=== PATIENT | female | born 1990 | race Native Hawaiian/Other Pacific Islander ===

== ENCOUNTER → 2019-05-30 14:30 | Outpatient (CLI) | payer SELFPAY | PROVIDERS: Visit Provider Physician Assistant | DX: N89.8 Other specified noninflammatory disorders of vagina (principal); O26.899 Other specified pregnancy related conditions, unspecified trimester | CPT/HCPCS: 87077; 87086; 87186 ==

== ENCOUNTER → 2019-06-08 12:39 | Outpatient (CLI) | payer BC, SELFPAY ==
[2019-06-08 13:10] LABS: Add Manual Diff / Slide Review NO; Appearance Urine UA CLEAR; Basophils Absolute Auto 0 /uL (0-100); Basophils Percent Auto 0.4 % (0-2); Bilirubin Urine UA NEGATIVE (NEGATIVE); Color Urine UA YELLOW; Eosinophils Absolute Auto 100 /uL (0-450); Eosinophils Percent Auto 1.1 % (2-4); Glucose Urine UA NEGATIVE (Negative); Hematocrit 33.1 % (36-46); Hemoglobin 11.3 g/dL (12.0-16.0); Ketones Urine UA NEGATIVE (NEGATIVE); Leukocyte Esterase Urine UA TRACE (NEGATIVE); Lymphocytes Absolute Auto 2600 /uL (1100-4500); Lymphocytes Percent Auto 22.9 % (25-40); Mean Corpuscular HGB Conc 34.1 % (30-36); Mean Corpuscular Hemoglobin 30.9 PG (26-34); Mean Corpuscular Volume 90.6 fL (80-100); Monocytes Absolute Auto 600 /uL (0-900); Monocytes Percent Auto 5.6 % (3-14); Neutrophils Absolute Auto 8000 /uL (1500-7000); Nitrite Urine UA NEGATIVE (Negative); Occult Blood Urine UA NEGATIVE (Negative); Platelet Count 266 X10^3/uL (150-400); Protein Urine UA NEGATIVE (Negative); Red Blood Cell Count 3.65 X10^6/uL (4.0-5.2); Red Cell Distribution Width 14.4 % (11.6-14.8); Specific Gravity Urine UA <=1.005 (1.000-1.035); Urobilinogen Urine UA 0.2 E.U./dL (0.2); White Blood Cell Count 11.5 X10^3/uL (4.5-11.0)
[2019-06-08 13:11] LABS: Bacteria Urine None Seen; RBC Urine None Seen (0-5/HPF)
[2019-06-08 13:16] LABS: Culture Indicated Urine Cult Not Indicated; WBC Urine 0-1/HPF (0-5/HPF)
[2019-06-08 13:21] LABS: Hemoglobin A1C% w Est Avg Glu 4.6 % (4.0-6.0)
[2019-06-08 13:26] LABS: Glucose 81 mg/dL (70-100)
[2019-06-08 16:50] LABS: Hepatitis B Surface Antigen NEGATIVE s/c (NEGATIVE); Rubella Antibody IgG 70.2 IU/mL (>15)
[2019-06-08 17:07] LABS: HIV 1 & 2 Ab/Ag 4th Gen Combo NEGATIVE (NEGATIVE); Hep C Virus Ab w/Reflex Quant NEGATIVE s/c (NEGATIVE)
[2019-06-10 22:26] LABS: RPR Screen Nonreactive (Nonreactive)
[2019-06-15 15:20] LABS: AFP, Serum 63.2 ng/mL; Calc Gestational Age 16.9; Cigarette Smoker NO; Donated Egg NOT GIVEN; Donor Egg Age NOT GIVEN; Estriol, Free 1.81 ng/mL; Inhibin A, Dimeric 206 pg/mL; Maternal Weight 118 lbs; Number of Fetuses 1; Previous Pregnancy Down Syndro NOT GIVEN; hCG, MoM 0.61; hCG, Serum 23.1 IU/mL
== END ==
DX: Z34.02 Encounter for supervision of normal first pregnancy, second trimester (principal); Z3A.16 16 weeks gestation of pregnancy
CPT/HCPCS: 80055; 81003; 81015; 82105; 82677; 82947; 83036; 84702; 86336; 86787; 86803; 86850; 86900; 86901; 87077; 87086; 87186; 87389

== ENCOUNTER → 2019-08-20 13:01 | Outpatient (CLI) | payer BC, SELFPAY ==
[2019-08-20 14:29] LABS: Hematocrit 34.6 % (36-46); Hemoglobin 11.7 g/dL (12.0-16.0)
[2019-08-21 11:11] LABS: GTT (PREG) 1 Hour PP 50gm Dose 104 mg/dL (76-139)
[2019-08-25 17:08] LABS: HSV 2 IGG AB < 0.90 index (< 0.90)
== END ==
PROVIDERS: Visit Provider Specialist
DX: Z34.02 Encounter for supervision of normal first pregnancy, second trimester (principal); Z20.2 Contact with and (suspected) exposure to infections with a predominantly sexual mode of transmission
CPT/HCPCS: 36415; 82950; 85014; 85018; 86695; 86696

== ENCOUNTER → 2019-10-29 15:32 | Outpatient (CLI) | payer BC, SELFPAY ==
[2019-10-30 13:17] LABS: Strep Grp B PCR NEG for Grp B Strep
== END ==
PROVIDERS: Visit Provider Specialist
DX: Z3A.37 37 weeks gestation of pregnancy (principal)
CPT/HCPCS: 87653

== ENCOUNTER 2019-11-09 10:33 | Inpatient (IN) | payer OTHER, SELFPAY ==
--- NOTE | 2019-11-09 11:50 | PM.OBHP.1 ---
OB HPI Date/Time Date of admission: 11/09/19 Date Patient Seen: 11/09/19 Time Patient Seen: 11:50 History of Present Condition Chief complaint: OBSERVATION : 1 Para: 0 Estimated Date of Delivery: 11/17/19 Estimated Gestational Age (weeks): 38 Narrative: Lilibeth Lucero is a 29 year old female admitted for spontaneous rupture membranes 30 hours ago not in active labor History of Present care: initiated at week # (16), number of visits (8) and pounds weight gain (28) Dating criteria: LMP confirmed by 2nd trimester US Ultrasounds: normal mid trimester US Obstetrical complications: none Medical complications: none Preadmission Labs Blood type: A (+) positive -: Antibody screen: negative, GBS status: negative, HBsAG: negative, HIV: negative, HSV 1: positive, HSV 2: negative and RPR/VDLR: negative -: Chlamydia screen: not detected and Gonorrhea screen: not detected -: Rubella: immune and Varicella: not immune HCAB: negative PAP: Normal Sequential screen: Normal 1 hr GTT: 104 Evaluation Evaluation Baseline heart rate: 130 Variability: Moderate (11-25) monitor accelerations: Present monitor decelerations: Absent Contraction Frequency (minutes): 5 Uterine Contraction Intensity: Mild Category of Tracing: I Cervical dilation (cm): 3 Cervical effacement (%): 70 station: -2 Non-invasive Membranes Rupture Test: positive [facility] Medical History (Updated 10/15/19 @ 09:12 by Fabiola Mchugh MD) HSV-1 infection (Acute) Meds Home Medications and Allergies Home Medications Medication Instructions Recorded Confirmed Type prenat.vits,leo,vfi-xvij-cunja 1 tab PO DAILY 05/30/19 05/30/19 History Double Electric breast Pump and #1 each 10/15/19 10/15/19 Rx Supplies valacyclovir 500 mg tablet 500 mg PO DAILY #30 tab 10/15/19 10/15/19 Rx Allergies Allergy/AdvReac Type Severity Reaction Status Date / Time No Known Drug Allergies Allergy Unverified 05/30/19 14:20 Review of Systems Review of Systems Narrative: Patient denies headaches, scotomata, epigastric pain. Leakage of fluid 6:00 a.m. yesterday. Mild contractions. Just pain suprapubically. ROS Unobtainable: All systems reviewed & are unremarkable except as noted in HPI and below Exam Vital Signs (past 8 hours): Blood pressure 122/83, pulse of 88, temperature 97.5? Narrative Exam Narrative: HEENT exam within normal limits. Lungs are clear to auscultation and percussion. Heart is regular rate and rhythm no S3-S4 or murmurs. Abdomen is soft, nontender. Fetus is vertex. No obvious herpetic lesions. Extremities without edema and nontender Assessment and Plan Assessment and Plan Assessment and Plan narrative: 38 and half week gestation with spontaneous rupture membranes greater than 24 hours ago not in active labor. Will begin Pitocin augmentation of labor and IV antibiotics. with a history of herpes no evidence of active lesions in patient has been taking her valacyclovir
[2019-11-09 12:09] LABS: Add Manual Diff / Slide Review NO; Basophils Absolute Auto 100 /uL (0-100); Basophils Percent Auto 0.6 % (0-2); Eosinophils Absolute Auto 100 /uL (0-450); Eosinophils Percent Auto 1.1 % (2-4); Hematocrit 36.4 % (36-46); Hemoglobin 12.5 g/dL (12.0-16.0); Lymphocytes Absolute Auto 2700 /uL (1100-4500); Lymphocytes Percent Auto 23.9 % (25-40); Mean Corpuscular HGB Conc 34.2 % (30-36); Mean Corpuscular Hemoglobin 30.3 PG (26-34); Mean Corpuscular Volume 88.6 fL (80-100); Monocytes Absolute Auto 700 /uL (0-900); Monocytes Percent Auto 6.5 % (3-14); Neutrophils Absolute Auto 7500 /uL (1500-7000); Neutrophils Percent Auto 67.9 % (50-75); Platelet Count 279 X10^3/uL (150-400); Red Blood Cell Count 4.11 X10^6/uL (4.0-5.2); White Blood Cell Count 11.1 X10^3/uL (4.5-11.0)
[2019-11-09] MEDS: LACTATED RINGERS 1,000 ML 100 ML IV ×2 (14:00→23:40)
[2019-11-09] MEDS: CEFAZOLIN 2 GM/100 ML FROZ.PIGGY IV ×2 (14:00→22:00)
[2019-11-09] MEDS: OXYTOCIN PREMIX 30 UNIT/500 ML PLAST..BAG IV (14:41)
[2019-11-09 15:44] VITALS: BP 109/74
[2019-11-09] MEDS: fentaNYL 100 MCG/2 ML INJ IV (20:57)
[2019-11-10] MEDS: FENT 2MCG/ML BUPIV 0.125% EPI 200 MCG/100 ML PLAST..BAG 10 MCG EPIDURAL ×2 (00:20→07:29)
[2019-11-10] MEDS: LACTATED RINGERS 1,000 ML 100 ML IV (05:01)
[2019-11-10] MEDS: CEFAZOLIN 2 GM/100 ML FROZ.PIGGY IV (05:45)
[2019-11-10] MEDS: miSOPROStoL 200 MCG TABLET 800 MCG PR (12:15)
[2019-11-10] MEDS: CARBOPROST 250 MCG/ML AMPUL IM (12:20)
--- NOTE | 2019-11-10 12:47 | PM.OBPRVD ---
 Events: Prolonged Rupture of Membrane Labor & Delivery Delivery date: 11/10/19 Intrapartal events: Prolonged Labor > 20 hours and Febrile (101 after the 1st hour of pushing, no uterine tenderness, no odor to the fluid) Delivery augmentation: pitocin Delivery monitor: external FHT and external uterine Route of delivery: vacuum extraction Indication for instrumentation: maternal exhaustion L&D Laceration Description: Perineal - 2nd Degree Delivery repair: chromic (3 0) Estimated blood loss (mL): 1,000 Anesthesia type: Epidural [place] Baby 1: gender: Female Presentation: vertex position: Right Occiput Anterior Placenta delivery description: Spontaneous cord vessel description: Nuchal Cord score (1 min): 8 score (5 min): 9 Narrative: Patient arrived on Labor and delivery with complaints of rupture membranes for greater than 30 hours. She was not in active labor so was started on Pitocin and IV antibiotics for prolonged rupture membranes. She had very slow progress in labor. She received an epidural catheter for pain control. heart tones category 1 to category 2 throughout labor. After pushing for 3 hours decision was made to use the vacuum to assist the vaginal delivery due to maternal exhaustion. The vacuum was placed for a total of 2 contractions with delivery of the infant's head over an intact perineum. A nuchal cord was released and the was delivered and placed on maternal abdomen. After the cord stopped pulsating the cord was clamped, cut, and cord bloods obtained. The placenta delivered spontaneously, intact, with 3 vessels. There were no cervical tears. Patient was found to have a second-degree perineal tear. Patient continued to bleed despite massage and IV Pitocin. She was given Hemabate IM and 800 micro g of Cytotec placed in the rectum. With continued massage eventually the bleeding did slow. The bladder was drained in and out catheter to remove 200 cc of urine. The second-degree perineal tear was repaired in the usual 2 layer fashion. The bleeding appeared to have been under control. But the total blood loss was a 1000 cc by measure. Both infant mother doing well. Plan for aftercare: Routine care monitor for evidence of endometritis and watch for further bleeding
[2019-11-10] MEDS: CARBOPROST 250 MCG/ML AMPUL INJ (13:36)
[2019-11-10 14:28] VITALS: TEMP 38.2
[2019-11-10] MEDS: ACETAMINOPHEN 325 MG TABLET 650 MG PO ×2 (14:28→20:57)
[2019-11-10] MEDS: DIPHENOXYLATE/ATROP 2.5/0.025 TABLET 2 EACH PO ×2 (14:43→20:57)
[2019-11-11 06:36] LABS: Hematocrit 29.5 % (36-46); Hemoglobin 9.8 g/dL (12.0-16.0); Mean Corpuscular HGB Conc 33.4 % (30-36); Mean Corpuscular Volume 89.8 fL (80-100); Platelet Count 246 X10^3/uL (150-400); Red Blood Cell Count 3.28 X10^6/uL (4.0-5.2); Red Cell Distribution Width 14.2 % (11.6-14.8); White Blood Cell Count 27.8 X10^3/uL (4.5-11.0)
[2019-11-11 06:38] LABS: Add Manual Diff / Slide Review YES
[2019-11-11 07:52] LABS: Neutrophils Absolute Manual 21962 /uL (3000-5900); Total Cells Counted 100
[2019-11-11 07:53] LABS: RBC Morphology Normal Morphology
[2019-11-11] MEDS: FERROUS GLUCONATE 324 MG TABLET PO (09:35)
[2019-11-11] MEDS: PRENATAL VIT,CALC/IRON/FOLIC 1 TABLET 1 TAB PO (09:37)
[2019-11-11] MEDS: ACETAMINOPHEN 325 MG TABLET 650 MG PO (10:20)
--- NOTE | 2019-11-11 14:35 | P.DS_ITS ---
Discharge Providers Provider Date of admission: 11/09/19 10:33 Discharge Date: 11/11/19 Consults: 11/09/19 11:56 Consult to Anesthesiology Urgent Comment: Consulting Provider: Anesthesiologist Reason for consultation: Epidural Has provider been notified: No 11/11/19 12:44 Consult to Prototype Special Build Routine Comment: Discharge provider: Fabiola Mchugh MD Summary Hospital Course Date Patient Seen: 11/11/19 Time Patient Seen: 14:37 Procedures: IV antibiotics, Pitocin induction, epidural catheter, vacuum payam chivo vaginal delivery, repair of second-degree perineal tear Hospital Course: Patient had spontaneous rupture membranes but did not present to the hospital until about 30 hours later. She was started on IV antibiotics and Pitocin. She received an epidural catheter for pain control. heart tones category 1 to category 2 throughout labor. She had a vacuum assisted vaginal delivery for maternal exhaustion. She had a 2nd degree perineal tear that was repaired. Both infant mother did well . Patient is without difficulty. Urinating and ambulating well. No headache or scotomata. Peripartum Data Delivery Method: Assisted Delivery (Vacuum assisted vaginal delivery) Laceration description: Perineal - 2nd Degree complications: none [place] 1: Gender: Female Disposition of : home Discharge Diagnosis (1) Vacuum-assisted vaginal delivery: Status: Acute (2) Acute blood loss anemia: Status: Acute Status at Discharge Cognitive/behavioral status at discharge: oriented Functional status at discharge: independent ambulation Overall status at discharge: patient is progressing back to baseline Time Spent with Patient Time attestation: Total time spent providing and/or coordinating discharge services: Time spent: Less than 30 minutes Objective Labs Result Diagrams: 11/11/19 06:25 Labs: Laboratory Results - last 24 hr 11/11/19 06:25 WBC 27.8 H D RBC 3.28 L Hgb 9.8 L Hct 29.5 L MCV 89.8 MCH 30.0 MCHC 33.4 RDW 14.2 Plt Count 246 Neut % (Auto) Not Reportable Lymph % (Auto) Not Reportable [place] % (Auto) Not Reportable Eos % (Auto) Not Reportable Baso % (Auto) Not Reportable Lymph # (Auto) Not Reportable [place] # (Auto) Not Reportable Baso # (Auto) Not Reportable Total Counted 100 Seg Neutrophils % 74.0 H Band Neutrophils % 5.0 Lymphocytes % (Manual) 14.0 L Monocytes % (Manual) 7.0 Neutrophils # (Manual) 92507 H RBC Morphology Normal morphology Exam Vital Signs (past 8 hours): Blood pressure 121/82, pulse of 88, temperature 98.1? Narrative Exam Narrative: Abdomen is soft, nontender. Uterus is firm, at U, nontender. Repair is intact. Mild lochia. Extremities without edema and nontender. Patient is Rh positive, rubella immune, and received the Tdap in the 3rd trimester. Discharge Plan Discharge Plan Patient Disposition: Home Discharge orders & Medications Prescriptions: New docusate sodium [DOK] 100 mg Capsule 100 mg PO DAILY Qty: 20 RF: 0 ibuprofen 600 mg Tablet 600 mg PO Q6HR PRN (Reason: Pain, Mild (1-3)) Qty: 30 RF: 0 ferrous gluconate 324 mg (38 mg iron) Tablet 324 mg PO DAILY Qty: 30 RF: 0 ibuprofen 600 mg tablet 600 mg PO Q6H PRN (Reason: pain (scale score 4-6)) Qty: 30 RF: 0 ferrous gluconate 324 mg (37.5 mg iron) tablet 324 mg PO DAILY Qty: 30 RF: 0 docusate sodium 100 mg tablet 100 mg PO DAILY Qty: 30 RF: 0 Continued prenat.vits,leo,mkt-oycn-zphnq tablet 1 tab PO DAILY RF: 0 (DME) Double Electric breast Pump and Supplies See Rx Instructions .ROUTE .MEDSUPPLY Qty: 1 RF: 0 Discontinued valacyclovir [Valtrex] 500 mg tablet 500 mg PO DAILY Qty: 30 RF: 0 Follow up/Referrals: Fabiola Mchugh MD [Physician] - 1 Month Diet/Activity/Treatments Diet: Regular Activity: Nothing in vagina for 4 weeks Skin/Wound/Dressing Care Report to your healthcare provider any signs of infection, such as:: chills, fever and increased pain
[2019-11-11 15:46] VITALS: BP 119/74; PULSE 98; RESP 16; TEMP 36.6
== END 2019-11-11 16:30 | disposition home or self-care (01) | DRG 806 ==
PROVIDERS: Admitting Provider Specialist; Visit Provider Specialist
DX: O42.12 Full-term premature rupture of membranes, onset of labor more than 24 hours following rupture (principal); O98.32 Other infections with a predominantly sexual mode of transmission complicating childbirth; Z37.0 Single live birth; O75.2 Pyrexia during labor, not elsewhere classified; D62 Acute posthemorrhagic anemia; B00.9 Herpesviral infection, unspecified; Z3A.38 38 weeks gestation of pregnancy; O70.1 Second degree perineal laceration during delivery; O75.81 Maternal exhaustion complicating labor and delivery; O69.81X0 Labor and delivery complicated by cord around neck, without compression, not applicable or unspecified
CPT/HCPCS: 01967; 36415; 59050; 59400; 85025; 86850; 86900; 86901; G0379; J0690; J2590; J3010; S0191